=== PATIENT | male | born 1960 | race American Indian/Alaskan Native ===

== ENCOUNTER 2017-11-17 09:26 | Emergency (ER) | payer MEDICARE ==
[2017-11-17 09:43] VITALS: BP 180/107
[2017-11-17] MEDS ORDERED: ROCEPHIN IM ONE (11:32)
[2017-11-17] MEDS ORDERED: XYLOCAINE 1% MPF 5 mL INFILTRATI ONE (11:32)
[2017-11-17] MEDS ORDERED: ZITHROMAX PO ONE (11:32)
--- NOTE | 2017-11-17 11:37 | Emergency Department Report ---
ED Male HPI - General Chief complaint: Urogenital-Male Stated complaint: STD Time Seen by Provider: 11/17/17 11:32 Source: patient Mode of arrival: Ambulatory Limitations: No Limitations - History of Present Illness Initial comments: 57-year-old [place] male comes in concern for exposure to STD. Patient reports that a girl that she slept with unprotected inform him that he needed to be checked out. Patient denies any penile discharge no abdominal pain or fever no chills no nausea no vomiting. He denies any testicular pain no groin pain. He reports "I just want to be checked out" as well as patient reports he stopped his blood pressure medicine. Patient reports that he ran out of blood pressure medicine and has not followed back up with his primary care provider which is Dr. Michael Machuca at [facility] in [place]. He denies any chest pain nausea shortness of breathing increased leg swelling no headaches. Patient reports no known drug allergies currently is taking no medication but was taken amlodipine 5 mg and a baby aspirin. NKDA. PMH of HTN. Severity scale (0 -10): 0 denies other symptoms - Related Data Home Medications Medication Instructions Recorded Confirmed Last Taken Aspirin [Aspirin BABY CHEW TAB] 81 mg PO QDAY 10/08/14 10/08/14 10/07/14 Previous Rx's Medication Instructions Recorded Last Taken Type Albuterol Sulfate [Ventolin HFA] 2 puff IH Q4H PRN #1 hfa.aer.ad 10/08/14 Unknown Rx Fluticasone/Salmeterol [Advair 1 puff IH BID #1 disk.w.dev 10/08/14 Unknown Rx Diskus 250-50 mcg] Prednisone [Prednisone 10 mg 10 mg PO .TAPER #1 tab.ds.pk 10/08/14 Unknown Rx (6-Day Pack, 21 Tabs)] amLODIPine [Norvasc] 5 mg PO DAILY #30 tab 11/17/17 Unknown Rx Allergies Allergy/AdvReac Type Severity Reaction Status Date / Time No Known Allergies Allergy Verified 09/15/14 13:19 ED Review of Systems ROS: Stated complaint: STD Other details as noted in HPI Constitutional: denies: chills, fever Eyes: denies: eye pain, eye discharge, vision change ENT: denies: ear pain, throat pain Respiratory: denies: cough, shortness of breath, wheezing Cardiovascular: denies: chest pain, palpitations Endocrine: no symptoms reported Gastrointestinal: denies: abdominal pain, nausea, diarrhea Genitourinary: denies: urgency, dysuria Musculoskeletal: denies: back pain, joint swelling, arthralgia Skin: denies: rash, lesions Neurological: denies: headache, weakness, paresthesias Psychiatric: denies: anxiety, depression Hematological/Lymphatic: denies: easy bleeding, easy bruising ED Past Medical Hx - Past Medical History Previous Medical History?: Yes Hx Deep Vein Thrombosis: Yes (2011 LL) Hx Asthma: Yes - Surgical History Past Surgical History?: Yes Additional Surgical History: "fatty tumor removed from back" - Social History Smoking Status: Current Every Day Smoker Substance Use Type: Alcohol - Medications Home Medications: Home Medications Medication Instructions Recorded Confirmed Last Taken Type Albuterol Sulfate [Ventolin HFA] 2 puff IH Q4H PRN #1 hfa.aer.ad 10/08/14 Unknown Rx Aspirin [Aspirin BABY CHEW TAB] 81 mg PO QDAY 10/08/14 10/08/14 10/07/14 History Fluticasone/Salmeterol [Advair 1 puff IH BID #1 disk.w.dev 10/08/14 Unknown Rx Diskus 250-50 mcg] Prednisone [Prednisone 10 mg 10 mg PO .TAPER #1 tab.ds.pk 10/08/14 Unknown Rx (6-Day Pack, 21 Tabs)] amLODIPine [Norvasc] 5 mg PO DAILY #30 tab 11/17/17 Unknown Rx ED Physical Exam - General Limitations: No Limitations General appearance: alert, in no apparent distress - Head Head exam: Present: atraumatic, normocephalic - Eye Eye exam: Present: normal appearance - ENT ENT exam: Present: mucous membranes moist - Neck Neck exam: Present: normal inspection - Respiratory Respiratory exam: Present: normal lung sounds bilaterally. Absent: respiratory distress - Cardiovascular Cardiovascular Exam: Present: regular rate, normal rhythm. Absent: systolic murmur, diastolic murmur, rubs, gallop - GI/Abdominal GI/Abdominal exam: Present: soft, normal bowel sounds - Rectal Rectal exam: Present: deferred - Extremities Exam Extremities exam: Present: normal inspection - Back Exam Back exam: Present: normal inspection - Neurological Exam Neurological exam: Present: alert, oriented X3 - Psychiatric Psychiatric exam: Present: normal affect, normal mood - Skin Skin exam: Present: warm, dry, intact, normal color. Absent: rash ED Course Vital Signs 11/17/17 09:39 Temperature 98.4 F Pulse Rate 90 Respiratory 17 Rate Blood Pressure 180/107 O2 Sat by Pulse 98 Oximetry ED Medical Decision Making - Medical Decision Making Patient's been evaluated by this provider fast track. I discussed the patient at that he needs to continue following up with his primary care provider for his blood pressure issues. Discussed the patient that because is completed his blood pressure medication means that he needs to return back to his primary care provider to be reevaluated and continue with his blood pressure medicine. Also discussed the patient ST exposure. That he needs to use protection. And that he needs to go to his primary care provider health Department to have a full workup of STD such as HIV hepatitis C hepatitis B. Also discussed the patient we will empirically treat him for gonorrhea and chlamydia. Patient verbalized understanding. Critical care attestation.: If time is entered above; I have spent that time in minutes in the direct care of this critically ill patient, excluding procedure time. ED Disposition Clinical Impression: HTN, goal below 130/80, STD exposure Disposition: DC- TO HOME OR SELFCARE Is pt being admited?: No Does the pt Need Aspirin: No Condition: Stable Instructions: Hypertension (ED), Sexually Transmitted Diseases (ED), Safe Sex ( ED) Prescriptions: amLODIPine [Norvasc] 5 mg PO DAILY #30 tab Referrals: [facility] [Other] - 3-5 Days MICHAEL MACHUCA MD [Staff Physician] - 3-5 Days [facility] [Outside] - 3-5 Days [facility] [Outside] - 3-5 Days [facility] [Outside] - 3-5 Days [facility] [Outside] - 3-5 Days Forms: Work/School Release Form(ED)
== END 2017-11-17 12:01 | disposition home or self-care (01) ==
LOC: ED 09:26
DX: Z20.2 Contact with and (suspected) exposure to infections with a predominantly sexual mode of transmission (principal); I10 Essential (primary) hypertension; F17.200 Nicotine dependence, unspecified, uncomplicated
CPT/HCPCS: 96372; 99282; J0696